=== PATIENT | female | born 1965 | race Caucasian/White ===

== ENCOUNTER 2019-03-30 04:06 | Emergency (ER) | payer SELFPAY ==
[~2019-03-30] VITALS: Ht 167.6 cm; Wt 70.5 kg
[2019-03-30 04:13] VITALS: BP 124/63; PULSE 101; TEMP 97.8
[2019-03-30] MEDS ORDERED: CRUTCHES MC (05:39)
[2019-03-30] MEDS ORDERED: TYLENOL W/COD1 UDTAB PO (05:39)
== END 2019-03-30 06:00 | disposition home or self-care (01) ==
LOC: COL.ER 04:06
DX: S89.91XA Unspecified injury of right lower leg, initial encounter (principal); F17.210 Nicotine dependence, cigarettes, uncomplicated; Z98.51 Tubal ligation status; W01.190A Fall on same level from slipping, tripping and stumbling with subsequent striking against furniture, initial encounter
CPT/HCPCS: L1846

== ENCOUNTER 2021-04-12 14:31 | Emergency (ER) | payer BC ==
[~2021-04-12] VITALS: Ht 167.6 cm; Wt 80.0 kg
[~2021-04-12 14:31] MED LIST: CRUTCHES MC; TYLENOL W/COD1 UDTAB PO
[2021-04-12 14:50] VITALS: TEMP 97.4
[2021-04-12 16:08] LABS: BASO # 0.1 (0.0-0.2); BASO % 0.5 % (0.0-2.0); COLLECTION METHOD CLEAN CATCH; EOS # 0.1 (0.0-0.7); GRAN # 6.6 (1.4-6.5); GRAN % 68.9 % (42.2-75.2); HEMATOCRIT 42.9 % (37.0-47.0); HEMOGLOBIN 13.8 g/dl (12.5-16.0); LYMPH # 1.9 (1.2-3.4); LYMPH % 19.5 % (20.0-51.0); MEAN CELL VOLUME 86 fl (80.0-100.0); MEAN CORPUSCULAR HEMOGLOBIN 28 pg (27.0-31.0); MEAN CORPUSCULAR HGB CONC 32 g/dl (33.0-37.0); MEAN PLATELET VOLUME 10.3 fl (7.4-10.4); MONO # 0.9 (0.1-0.6); MONO % 9.8 % (1.7-9.3); PLATELET COUNT 310 K/mm3 (130-400); RED BLOOD COUNT 5.02 M/mm3 (4.10-5.30); REDCELL DISTRIBUTION WIDTH-CV 14.3 % (11.5-14.5)
[2021-04-12 16:19] LABS: MUCOUS Present /lpf; PH 5 (5-8); URINE APPEARANCE Turbid; URINE BACTERIA Rare /hpf; URINE BILIRUBIN Negative (NEGATIVE); URINE BLOOD 2+ (NEGATIVE); URINE COLOR Amber; URINE GLUCOSE Negative (NEGATIVE); URINE KETONE Trace (NEGATIVE); URINE LEUKOCYTE ESTERASE 2+ (NEGATIVE); URINE NITRATE Negative (NEGATIVE); URINE PROTEIN(semi-quant) 2+ (NEGATIVE); URINE RBC >50 /hpf
[2021-04-12 16:23] LABS: BILIRUBIN,TOTAL 0.3 mg/dL (0.0-1.0); C-REACTIVE PROTEIN 0.6 mg/dL (0.0-0.9); CALCIUM 9.4 mg/dL (8.4-10.2); CREATININE, serum 0.78 (0.52-1.25); TOTAL PROTEIN 7.3 gm/dL (6.4-8.2)
[2021-04-12] MEDS ORDERED: OMNICEF 300MG300 MG PO ×7 (16:47→16:59)
[2021-04-12 16:50] VITALS: BP 113/75; PULSE 67
== END 2021-04-12 17:00 | disposition home or self-care (01) ==
LOC: COL.ER 14:31
PROVIDERS: Nurse Practitioner Primary Care
DX: N39.0 Urinary tract infection, site not specified (principal); N76.0 Acute vaginitis; F17.210 Nicotine dependence, cigarettes, uncomplicated
CPT/HCPCS: J1885; J7030

== ENCOUNTER 2021-05-01 10:30 | Emergency (ER) | payer BC ==
[~2021-05-01] VITALS: Ht 167.6 cm; Wt 77.3 kg
[~2021-05-01 10:30] MED LIST changes: +OMNICEF 300MG300 MG PO
[2021-05-01 10:45] VITALS: TEMP 97.6
[2021-05-01 11:09] LABS: BASO % 0.4 % (0.0-2.0); EOS # 0.1 (0.0-0.7); EOS % 0.9 % (0-4.0); GRAN # 6.8 (1.4-6.5); GRAN % 76.1 % (42.2-75.2); HEMATOCRIT 40.6 % (37.0-47.0); HEMOGLOBIN 13.1 g/dl (12.5-16.0); LYMPH # 1.3 (1.2-3.4); LYMPH % 14.9 % (20.0-51.0); MEAN CELL VOLUME 85 fl (80.0-100.0); MEAN CORPUSCULAR HEMOGLOBIN 28 pg (27.0-31.0); MEAN CORPUSCULAR HGB CONC 32 g/dl (33.0-37.0); MEAN PLATELET VOLUME 10.1 fl (7.4-10.4); MONO # 0.7 (0.1-0.6); MONO % 7.4 % (1.7-9.3); PLATELET COUNT 306 K/mm3 (130-400); RED BLOOD COUNT 4.77 M/mm3 (4.10-5.30); REDCELL DISTRIBUTION WIDTH-CV 14.3 % (11.5-14.5)
[2021-05-01 11:22] LABS: ALANINE AMINOTRANSFERASE 12 U/L (4-34); ALKALINE PHOSPHATASE 56 U/L (50-136); ANION GAP 7 mmol/L (7-16); AST,SGOT 20 U/L (15-37); BILIRUBIN,TOTAL 0.5 mg/dL (0.0-1.0); BLOOD UREA NITROGEN 17 mg/dL (7-17); C-REACTIVE PROTEIN < 0.5 mg/dL (0.0-0.9); CALCIUM 8.5 mg/dL (8.4-10.2); CARBON DIOXIDE 22 mmol/L (22-30); CHLORIDE 111 mmol/L (98-107); CREATININE, serum 0.55 (0.52-1.25); GLUCOSE 103 mg/dL (74-106); LIPASE 34 U/L (23-300); POTASSIUM 3.8 mmol/L (3.4-5.0); SODIUM 140 mmol/L (137-145); TOTAL PROTEIN 7.2 gm/dL (6.4-8.2)
[2021-05-01 11:23] LABS: COLLECTION METHOD CLEAN CATCH
[2021-05-01 11:35] LABS: AMORPHOUS CRYSTAL Present /uL; MUCOUS Present /lpf; PH 5 (5-8); URINE APPEARANCE Cloudy; URINE BACTERIA Moderate /hpf; URINE BILIRUBIN Negative (NEGATIVE); URINE BLOOD 3+ (NEGATIVE); URINE COLOR Yellow; URINE GLUCOSE Negative (NEGATIVE); URINE KETONE 1+ (NEGATIVE); URINE LEUKOCYTE ESTERASE 2+ (NEGATIVE); URINE NITRATE Negative (NEGATIVE); URINE PROTEIN(semi-quant) Negative (NEGATIVE); URINE UROBILINOGEN Negative (NEGATIVE)
[2021-05-01] MEDS ORDERED: CEPHALEXIN500 M1 PO (14:43)
[2021-05-01 14:55] VITALS: BP 130/79; PULSE 82
== END 2021-05-01 14:55 | disposition home or self-care (01) ==
LOC: COL.ER 10:30
PROVIDERS: Nurse Practitioner
DX: N39.0 Urinary tract infection, site not specified (principal); F17.210 Nicotine dependence, cigarettes, uncomplicated
CPT/HCPCS: J0696; J1170; J2405; J7030; Q9967

== ENCOUNTER 2021-05-12 07:43 | Day surgery (SDC) | payer BC ==
[~2021-05-12] VITALS: Ht 167.6 cm; Wt 78.2 kg
[~2021-05-12 07:43] MED LIST changes: +CEPHALEXIN500 M1 PO
[2021-05-12] MEDS ORDERED: SENNA-S 50 MG-81 TAB PO (08:03)
[2021-05-12] MEDS ORDERED: ATIVAN 0.50.5 MG/TAB PO (08:04)
[2021-05-12 08:35] VITALS: BP 108/56; PULSE 72; TEMP 98
[2021-05-12 09:55] VITALS: BP 106/50; PULSE 70; TEMP 97.4
[2021-05-12 10:15] VITALS: BP 113/62; PULSE 68
[2021-05-12 10:30] VITALS: BP 112/62; PULSE 66
[2021-05-12 10:45] VITALS: BP 129/67; PULSE 60
[2021-05-12 11:00] VITALS: BP 112/66; PULSE 60
== END 2021-05-12 11:19 | disposition home or self-care (01) ==
LOC: SDCO 07:43
DX: C53.9 Malignant neoplasm of cervix uteri, unspecified (principal); N39.0 Urinary tract infection, site not specified; F17.210 Nicotine dependence, cigarettes, uncomplicated; Z98.51 Tubal ligation status; Z79.891 Long term (current) use of opiate analgesic; Z79.899 Other long term (current) drug therapy; Z80.1 Family history of malignant neoplasm of trachea, bronchus and lung
CPT/HCPCS: C1788; J0690; J1644; J2250; J2704; J7120

== ENCOUNTER 2021-05-23 10:01 | Emergency (ER) | payer BC ==
[~2021-05-23] VITALS: Ht 167.6 cm; Wt 77.3 kg
[~2021-05-23 10:01] MED LIST changes: +ATIVAN 0.50.5 MG/TAB PO; +SENNA-S 50 MG-81 TAB PO
[2021-05-23 10:15] VITALS: TEMP 97.6
[2021-05-23 10:51] LABS: BASO # 0.1 (0.0-0.2); BASO % 0.7 % (0.0-2.0); EOS # 0.1 (0.0-0.7); EOS % 1.5 % (0-4.0); GRAN # 6.5 (1.4-6.5); GRAN % 73.6 % (42.2-75.2); HEMATOCRIT 42.8 % (37.0-47.0); HEMOGLOBIN 13.7 g/dl (12.5-16.0); LYMPH # 1.5 (1.2-3.4); LYMPH % 16.7 % (20.0-51.0); MEAN CELL VOLUME 85 fl (80.0-100.0); MEAN CORPUSCULAR HEMOGLOBIN 27 pg (27.0-31.0); MEAN CORPUSCULAR HGB CONC 32 g/dl (33.0-37.0); MEAN PLATELET VOLUME 10.5 fl (7.4-10.4); MONO # 0.7 (0.1-0.6); MONO % 7.3 % (1.7-9.3); PLATELET COUNT 286 K/mm3 (130-400); RED BLOOD COUNT 5.05 M/mm3 (4.10-5.30); REDCELL DISTRIBUTION WIDTH-CV 13.3 % (11.5-14.5)
[2021-05-23 11:08] LABS: BILIRUBIN,TOTAL 0.4 mg/dL (0.0-1.0); C-REACTIVE PROTEIN 0.9 mg/dL (0.0-0.9); CREATININE, serum 0.63 (0.52-1.25); POTASSIUM 3.7 mmol/L (3.4-5.0); TOTAL PROTEIN 7.3 gm/dL (6.4-8.2)
[2021-05-23 11:47] LABS: COLLECTION METHOD CLEAN CATCH
[2021-05-23 11:53] LABS: PH 6 (5-8); SQUAMOUS EPITHELIAL 0-2 /hpf; URINE APPEARANCE Clear; URINE BACTERIA Rare /hpf; URINE BILIRUBIN Negative (NEGATIVE); URINE BLOOD 2+ (NEGATIVE); URINE COLOR Straw; URINE GLUCOSE Negative (NEGATIVE); URINE KETONE Negative (NEGATIVE); URINE LEUKOCYTE ESTERASE 1+ (NEGATIVE); URINE NITRATE Negative (NEGATIVE); URINE PROTEIN(semi-quant) Negative (NEGATIVE); URINE RBC 0-2 /hpf; URINE UROBILINOGEN Negative (NEGATIVE)
[2021-05-23] MEDS ORDERED: ROXICODONE 55 MG/TAB (12:49)
[2021-05-23] MEDS ORDERED: DILAUDID 2MG TAB2 MG PO (12:53)
[2021-05-23 13:10] VITALS: BP 111/84; PULSE 67
== END 2021-05-23 13:12 | disposition home or self-care (01) ==
LOC: COL.ER 10:01
PROVIDERS: Family Medicine
DX: N39.0 Urinary tract infection, site not specified (principal); F17.290 Nicotine dependence, other tobacco product, uncomplicated
CPT/HCPCS: J1170; J2270; J2405; J7120; Q9967

== ENCOUNTER 2021-05-28 09:40 | Emergency (ER) | payer BC ==
[~2021-05-28] VITALS: Ht 167.6 cm; Wt 80.0 kg
[~2021-05-28 09:40] MED LIST changes: +DILAUDID 2MG TAB2 MG PO; +ROXICODONE 55 MG/TAB
[2021-05-28 09:53] VITALS: TEMP 98.1
[2021-05-28 10:23] LABS: BASO % 0.3 % (0.0-2.0); EOS % 0.1 % (0-4.0); GRAN # 8.4 (1.4-6.5); GRAN % 79.4 % (42.2-75.2); HEMATOCRIT 40.6 % (37.0-47.0); HEMOGLOBIN 12.7 g/dl (12.5-16.0); LYMPH # 1.3 (1.2-3.4); LYMPH % 12.7 % (20.0-51.0); MEAN CELL VOLUME 88 fl (80.0-100.0); MEAN CORPUSCULAR HEMOGLOBIN 28 pg (27.0-31.0); MEAN CORPUSCULAR HGB CONC 31 g/dl (33.0-37.0); MEAN PLATELET VOLUME 10.3 fl (7.4-10.4); MONO # 0.8 (0.1-0.6); MONO % 7.3 % (1.7-9.3); PLATELET COUNT 270 K/mm3 (130-400); RED BLOOD COUNT 4.62 M/mm3 (4.10-5.30); REDCELL DISTRIBUTION WIDTH-CV 14.4 % (11.5-14.5)
[2021-05-28 10:35] LABS: ALBUMIN 3.7 gm/dL (3.5-5.0); BILIRUBIN,TOTAL 0.4 mg/dL (0.0-1.0); C-REACTIVE PROTEIN 0.9 mg/dL (0.0-0.9); CALCIUM 8.4 mg/dL (8.4-10.2); CREATININE, serum 0.69 (0.52-1.25); POTASSIUM 3.7 mmol/L (3.4-5.0); TOTAL PROTEIN 6.9 gm/dL (6.4-8.2)
[2021-05-28 11:20] LABS: COLLECTION METHOD CLEAN CATCH
[2021-05-28 11:29] LABS: MUCOUS Present /lpf; PH 5 (5-8); URINE APPEARANCE Cloudy; URINE BACTERIA Occasional /hpf; URINE BILIRUBIN Negative (NEGATIVE); URINE BLOOD 2+ (NEGATIVE); URINE COLOR Yellow; URINE GLUCOSE Negative (NEGATIVE); URINE KETONE Negative (NEGATIVE); URINE LEUKOCYTE ESTERASE 3+ (NEGATIVE); URINE NITRATE Negative (NEGATIVE); URINE PROTEIN(semi-quant) Negative (NEGATIVE); URINE UROBILINOGEN Negative (NEGATIVE)
[2021-05-28] MEDS ORDERED: MIRALAX PA17 GM/Dose PO (13:11)
[2021-05-28] MEDS ORDERED: CEFTIN500 MG PO (13:11)
[2021-05-28 13:29] VITALS: BP 110/79; PULSE 68
== END 2021-05-28 13:31 | disposition home or self-care (01) ==
LOC: COL.ER 09:40
PROVIDERS: Emergency Medicine
DX: N39.0 Urinary tract infection, site not specified (principal); K59.00 Constipation, unspecified; F17.210 Nicotine dependence, cigarettes, uncomplicated
CPT/HCPCS: J0696; J1170; J2405; J7030

== ENCOUNTER 2022-07-14 07:05 | Outpatient (CLI) | payer BC ==
[2022-07-14] VITALS (16 sets, daily range): BP systolic 93–132; BP diastolic 48–78; PULSE 65–86; TEMP 97.6
[~2022-07-14] VITALS: Ht 167.6 cm; Wt 76.7 kg
[~2022-07-14 07:05] MED LIST changes: +CEFTIN500 MG PO; +MIRALAX PA17 GM/Dose PO; +NEURONTIN100 MG/CAP PO; +ROXICODONE 55 MG/TAB PO
--- NOTE | 2022-07-14 08:17 | NUR ---
PT REPORTS SHE HAS 4 PINCHED NERVES IN HER NECK AND THAT IS WHAT SHE HAD THE PAIN WITH.
[2022-07-15] MEDS ORDERED: ZANAFLEX2 MG PO (18:42)
== END 2022-07-14 12:00 | disposition home or self-care (01) ==
LOC: COL.RAD 07:05
DX: J93.83 Other pneumothorax (principal); R91.8 Other nonspecific abnormal finding of lung field
CPT/HCPCS: 32107

== ENCOUNTER 2022-07-15 14:11 | Observation (INO) | payer BC, MEDICAID ==
[~2022-07-15] VITALS: Ht 167.6 cm; Wt 77.5 kg
[2022-07-15] MEDS ORDERED: ZANAFLEX2 MG PO (18:42)
[2022-07-15 20:03] VITALS: BP 122/52; PULSE 77; TEMP 98.3
--- NOTE | 2022-07-15 21:30 | NUR ---
Admitted to medical floor,DX left pneumothorax,VSS, pain 7-8/ to left shoulder/upperback, pain increased with breathing-movement, o2 sats 93-96% on RA, Dilaudid given for pain as ordered, Dr. Kenndey called with list of home meds- did reorder all except home oxycodone since pt is on Dilaudid IV here,, Iv fluids of LR at 125cc/hr.
[2022-07-15 23:33] VITALS: BP 131/59; PULSE 73; TEMP 97.8
[2022-07-16 03:52] VITALS: BP 129/72; PULSE 52; TEMP 98.4
--- NOTE | 2022-07-16 05:13 | NUR ---
Has been sleeping well for the past 5-6 hours- did give Dilaudid IV x3 this shift for left shoulder pain/chest pain, tele on, o2 sats 96% on RA.
[2022-07-16 07:12] VITALS: BP 108/53; PULSE 70; TEMP 98.3
--- NOTE | 2022-07-16 09:00 | NUR ---
Patient is resting in bed, alert and oriented x 4, VSS. Telemetry in place, NSR. Assessment completed, meds provided. No other needs at this time. Call light within reach.
[2022-07-16] MEDS ORDERED: ROXICODONE 55 MG/TAB PO (09:31)
--- NOTE | 2022-07-16 11:42 | NUR ---
Patient was provided with discharge information, IV access and telemetry discontinued. All questions answered. Jeser will take pt home.
== END 2022-07-16 11:44 | disposition home or self-care (01) ==
LOC: COL.ER 14:11 → MEDICAL 18:26 → EDBEDREQ 18:34 → MEDICAL 07-16 11:44
PROVIDERS: ADMIT Surgery
DX: J95.811 Postprocedural pneumothorax (principal); M54.9 Dorsalgia, unspecified; C53.9 Malignant neoplasm of cervix uteri, unspecified; C52 Malignant neoplasm of vagina; F17.210 Nicotine dependence, cigarettes, uncomplicated; Z28.310 Unvaccinated for COVID-19; Z28.9 Immunization not carried out for unspecified reason; Z95.828 Presence of other vascular implants and grafts
CPT/HCPCS: G0378; J1170; J2270; J2405; J7120

== ENCOUNTER 2022-07-16 23:15 | Emergency (ER) | payer BC, MEDICAID ==
[~2022-07-16] VITALS: Ht 167.6 cm; Wt 76.4 kg
[~2022-07-16 23:15] MED LIST changes: +ZANAFLEX2 MG PO
[2022-07-16 23:26] VITALS: TEMP 97.5
[2022-07-16 23:56] LABS: BASO % 0.7 % (0.0-2.0); EOS # 0.1 K/mm3 (0.0-0.7); EOS % 1.3 % (0.0-4.0); GRAN # 4.1 K/mm3 (1.4-6.5); GRAN % 68.9 % (42.2-75.2); HEMATOCRIT 37.8 % (37.0-47.0); HEMOGLOBIN 12.3 g/dl (12.5-16.0); LYMPH # 0.9 K/mm3 (1.2-3.4); LYMPH % 14.8 % (20.0-51.0); MEAN CELL VOLUME 86 fl (80.0-100.0); MEAN CORPUSCULAR HEMOGLOBIN 28 pg (27-31); MEAN CORPUSCULAR HGB CONC 33 g/dl (33.0-37.0); MEAN PLATELET VOLUME 9.8 fl (7.4-10.4); MONO # 0.9 K/mm3 (0.1-0.6); MONO % 14.1 % (1.7-9.3); PLATELET COUNT 210 K/mm3 (130-400); RED BLOOD COUNT 4.39 M/mm3 (4.10-5.30); REDCELL DISTRIBUTION WIDTH-CV 14.2 % (11.5-14.5)
[2022-07-17 00:14] LABS: BILIRUBIN,TOTAL 0.3 mg/dL (0.2-1.2); CALCIUM 9.1 mg/dL (8.4-10.2); CREATININE, serum 0.84 mg/dL (0.57-1.11); POTASSIUM 3.7 mmol/L (3.5-4.5); TOTAL PROTEIN 7.1 gm/dL (6.2-8.1)
[2022-07-17 00:38] VITALS: BP 112/58; PULSE 92
== END 2022-07-17 00:41 | disposition home or self-care (01) ==
LOC: COL.ER 23:15
PROVIDERS: Nurse Practitioner
DX: I87.8 Other specified disorders of veins (principal); F17.200 Nicotine dependence, unspecified, uncomplicated; Z28.310 Unvaccinated for COVID-19

== ENCOUNTER → 2022-09-20 | Outpatient (CLI) | payer BC | LOC: MHCPAIN 09:28 | DX: M47.892 Other spondylosis, cervical region (principal); M54.12 Radiculopathy, cervical region; M54.2 Cervicalgia | CPT/HCPCS: G0463 ==

== ENCOUNTER → 2022-12-12 | Outpatient (CLI) | payer BC | LOC: MHCPAIN 10-27 12:52 | DX: M54.12 Radiculopathy, cervical region (principal); M47.892 Other spondylosis, cervical region; Z85.118 Personal history of other malignant neoplasm of bronchus and lung | CPT/HCPCS: G0463; J1100; Q9967 ==

== ENCOUNTER → 2023-01-11 | Outpatient (CLI) | payer BC | LOC: MHCPAIN 13:33 | DX: M47.892 Other spondylosis, cervical region (principal); M54.12 Radiculopathy, cervical region; F17.210 Nicotine dependence, cigarettes, uncomplicated | CPT/HCPCS: G0463 ==

== ENCOUNTER 2023-08-04 13:18 | Outpatient (RCR) | payer OTHER ==
[~2023-08-04 13:18] MED LIST changes: +AMOXICILLIN 50500 MG PO; +PERCOCET 325 MG1 TA2 PO
== END 2023-08-12 ==
LOC: WSOH
DX: S02.2XXD Fracture of nasal bones, subsequent encounter for fracture with routine healing (principal); S01.511D Laceration without foreign body of lip, subsequent encounter; S80.11XD Contusion of right lower leg, subsequent encounter; S16.1XXD Strain of muscle, fascia and tendon at neck level, subsequent encounter; Y99.0 Civilian activity done for income or pay; J44.9 Chronic obstructive pulmonary disease, unspecified; F41.9 Anxiety disorder, unspecified